=== PATIENT | male | born 1970 | race Caucasian/White ===

== ENCOUNTER 2019-08-20 21:52 | Emergency (ER) | payer MEDICAID ==
[~2019-08-20] VITALS: Ht 162.6 cm; Wt 63.5 kg
[2019-08-20 22:10] VITALS: BP 115/92
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
[2019-08-20] MEDS ORDERED: Tetanus/Diptheria/Pertussis IM ONE (22:30)
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
[2019-08-21 02:10] VITALS: BP 120/89
--- NOTE | 2019-08-21 02:39 | Diagnostic Imaging Report ---
Indication: Headache Technique: Contiguous 5 mm thick transaxial imaging of the head obtained in a Siemens Sensation [address] scanner. Soft tissue and bone windows generated. Automatic Exposure Control was utilized. Total Dose length Product (DLP): 1394.[address] Dose Index Volume (CTDIvol): 62.7 mGy Comparison: none Findings: The size and configuration of the cortical sulci, basal cisterns, and ventricles are within normal limits for age. There is no mass effect, midline shift, or edema identified. There is no evidence of acute hemorrhage or abnormal intra-axial or extra-axial fluid collections. The bones and soft tissues are unremarkable. There is mucosal thickening in the left maxillary and ethmoid sinus consistent with sinusitis. Impression: No mass effect, edema or acute bleed. [facility] has communicated the preliminary results to the Emergency Department. Their findings are largely concordant with this report. The CT scanner at [facility] is accredited by the [employer] and the scans are performed using dose optimization techniques as appropriate to a performed exam including Automatic Exposure control.
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
[2019-08-21] MEDS ORDERED: NAPROXEN250 MG ORAL (02:46)
[2019-08-21 06:22] VITALS: BP 120/89
--- NOTE | 2019-08-21 06:22 | NUR ---
ED Nurse Note: Pt cleared by health care Provider for discharge. DC instructions/prescription was given and explained to pt and verbalized understanding of teachings. All medical deviecs such as ID band removed. Pt is AAO x4, ambulatory and left with all personal belongings.
== END 2019-08-21 06:23 | disposition home or self-care (01) ==
LOC: EDBD 21:52 → EMR 22:22
DX: S00.83XA Contusion of other part of head, initial encounter (principal); S22.31XA Fracture of one rib, right side, initial encounter for closed fracture; Z23 Encounter for immunization; I10 Essential (primary) hypertension; Y04.2XXA Assault by strike against or bumped into by another person, initial encounter; Y92.9 Unspecified place or not applicable
CPT/HCPCS: 70450; 70486; 71111; 90471; 90715; Z7502; 99284